=== PATIENT | male | born 1975 | race Caucasian/White ===

== ENCOUNTER 2020-03-26 12:59 | Emergency (ER) | payer MEDICAID ==
[~2020-03-26] VITALS: Ht 172.7 cm; Wt 81.9 kg
[2020-03-26 13:15] VITALS: BP 119/77
--- NOTE | 2020-03-26 13:45 | NUR ---
PT PRESENTING TO ER AFTER FALLING OFF ROOFF ONTO RIGHT SIDE, CAUSING RIGHT ANKLE PAIN, GLUTE PAIN AND MIDLINE LOWER BACK PAIN. FAMILY AT BEDSIDE. CALL LIGHT WITHIN REACH
--- NOTE | 2020-03-26 13:57 | NUR ---
PT TAKEN FOR IMAGING
[2020-03-26] MEDS ORDERED: OXYcodone/APAP 5/325MG TABLET PO ONE (14:00)
[2020-03-26] MEDS ORDERED: OXYcodone/APAP 5/325MG TABLET ONE (14:18)
--- NOTE | 2020-03-26 14:24 | NUR ---
ANKLE ELEVATED, ICE APPLIED. MEDICATED FOR PAIN PER MAR.
--- NOTE | 2020-03-26 14:49 | NUR ---
ALL RESUTLS BACK AT THIS TIME, CHART UP FOR RECHECK
--- NOTE | 2020-03-26 15:34 | NUR ---
PA TO BEDSIDE TO RECHECK PT AND UPDATE ON POC
[2020-03-26] MEDS ORDERED: KETOROLAC 30 MG/1 ML ONE (15:40)
--- NOTE | 2020-03-26 15:45 | NUR ---
ADDITIONAL ORDERS RECEIVED FOR PAIN MEDS AND CT RECEIVED AT THIS TIME. PT MEDICATED. AWAITING IMAGING
[2020-03-26] MEDS ORDERED: KETOROLAC 30 MG/1 ML IM ONE (16:00)
--- NOTE | 2020-03-26 16:06 | NUR ---
TAKEN TO IMAGING
--- NOTE | 2020-03-26 16:54 | NUR ---
TE[facility] AT BEDSIDE APPLYING SPLINT AND PROVIDING CRUTCH TEACHING
== END 2020-03-26 17:15 | disposition home or self-care (01) ==
LOC: ED 14:54
DX: S92.001A Unspecified fracture of right calcaneus, initial encounter for closed fracture (principal); S39.012A Strain of muscle, fascia and tendon of lower back, initial encounter; G89.11 Acute pain due to trauma; W01.0XXA Fall on same level from slipping, tripping and stumbling without subsequent striking against object, initial encounter; Y93.89 Activity, other specified; Y92.098 Other place in other non-institutional residence as the place of occurrence of the external cause; Y99.8 Other external cause status
CPT/HCPCS: 29515; 72131; 73650; 73700; 96372; 99285; J1885